=== PATIENT | male | born 1995 | race African-American/Black ===

== ENCOUNTER 2017-12-03 17:18 | Emergency (ER) | payer SELFPAY ==
[~2017-12-03] VITALS: Ht 180.3 cm; Wt 73.0 kg
[2017-12-03] MEDS ORDERED: BACITRACIN ZINC OINT UDPKT TOP ONE (17:45)
[2017-12-03] MEDS ORDERED: ACETAMINOPHEN 325MG TABLET PO ONE (17:45)
[2017-12-03] MEDS ORDERED: CEFAZOLIN 1000MG PREMIX 50 ML IV ONE (19:00)
[2017-12-03] MEDS ORDERED: ACETAMINOPHEN WITH CODEINE 300/30MG TABLET PO ONE (20:15)
[2017-12-03 20:30] LABS: CHLORIDE 106 mEq/L (98-107)
[2017-12-03 20:31] LABS: BASOPHILS % 0.5 % (0.0-2.0); EOSINOPHILS % 0.3 % (0.0-5.0); HEMATOCRIT. 43.7 % (42.0-52.0); HEMOGLOBIN. 15.5 g/dL (14.0-18.0); LYMPHOCYTES % 37.4 % (20.0-50.0); MEAN CORPUSCULAR HEMOGLOBIN 31.2 pg (28.0-32.0); MEAN CORPUSCULAR VOLUME 88.3 fL (80.0-94.0); MEAN PLATELET VOLUME 8.2 fl (7.4-10.4); MONOCYTES % 7.4 % (2.0-8.0); NEUTROPHILS % 54.4 % (40.0-76.0); PLATELET 202 x1000/uL (130-400); RED BLOOD CELL COUNT 4.95 mill/uL (4.7-6.1); RED CELL DISTRIBUTION WIDTH 13.1 % (11.6-14.6)
[2017-12-03 20:32] LABS: INR 1.2; PARTIAL THROMBOPLASTIN TIME 26.1 sec (23.4-31.0); PROTHROMBIN TIME 12.4 sec (9.4-11.6)
[2017-12-03 20:39] LABS: CARBON DIOXIDE 26 mEq/L (21-32)
[2017-12-03 20:40] VITALS: BP 121/75
== END 2017-12-03 22:45 | disposition short-term general hospital (02) ==
LOC: ER 18:20
DX: S92.311B Displaced fracture of first metatarsal bone, right foot, initial encounter for open fracture (principal); Z88.6 Allergy status to analgesic agent; W34.00XA Accidental discharge from unspecified firearms or gun, initial encounter; Y93.89 Activity, other specified; Y92.018 Other place in single-family (private) house as the place of occurrence of the external cause
CPT/HCPCS: 36415; 73630; 80053; 85025; 85610; 85730; 87040; 96365; 99285; A4217; J0690; Z7610